=== PATIENT | female | born 1950 | race Caucasian/White ===

== ENCOUNTER 2021-01-09 08:44 | Outpatient (RCR) | payer MEDICARE, SELFPAY ==
[2021-01-09] MEDS: COVID-19 VACC, MRNA(PFIZER)/PF 30 MCG/0.3 ML SYRINGE IM (11:01)
[2021-01-30] MEDS: COVID-19 VACC, MRNA(PFIZER)/PF 30 MCG/0.3 ML SYRINGE IM (10:54)
== END 2021-04-10 23:59 ==
LOC: IMMUN 08:44
PROVIDERS: PCP Preventive Medicine Occupational Medicine; Visit Provider Family Medicine
DX: Z23 Encounter for immunization (principal)
CPT/HCPCS: 0001A; 0002A; 91300

== ENCOUNTER → 2025-01-05 | Outpatient (CLI) | payer MEDICARE, SELFPAY ==
--- NOTE | 2025-01-05 12:23 | NEURO ---
NCS and/or EMG Patient Report Ordering Doctor: Celio Gunter DATE OF SERVICE: 01/05/25 Aliza presents complaints of numbness and tingling in the right hand. Electrodiagnostic findings: Right median motor nerve demonstrates normal distal latency, amplitude and conduction velocity. Right ulnar motor responses within normal limits, including conduction across the elbow. Normal right median and right ulnar F?wave. Prolonged right median sensory latency at the wrist. Normal ulnar and radial sensory responses. Needle EMG testing was performed in the right upper limb. All muscles tested showed no evidence of denervation with normal motor unit action potentials. Electrodiagnostic impression: This is an abnormal study in the right upper limb 1. Electrodiagnostic findings suggestive of right-sided median mononeuropathy. This is consistent with a mild right carpal tunnel syndrome. 2. No electrodiagnostic evidence is noted for ulnar neuropathy, including cubital tunnel syndrome. 3. No electrodiagnostic evidence is noted for cervical radiculopathy [facility] Codes Neurology Neurology Interp Codes: 82917-20 Musc test done w/n test comp (interp) and 05263-87 Nrv cndj test 7-8 studies (interp)
== END | disposition home or self-care (01) ==
LOC: PSN 10:45
PROVIDERS: PCP Preventive Medicine Occupational Medicine; Referring Provider Preventive Medicine Occupational Medicine; Visit Provider Preventive Medicine Occupational Medicine
DX: G56.30 Lesion of radial nerve, unspecified upper limb (principal); R20.2 Paresthesia of skin; R20.0 Anesthesia of skin
CPT/HCPCS: 95886; 95910